=== PATIENT | male | born 1995 | race Caucasian/White ===

== ENCOUNTER 2018-10-01 08:14 | Emergency (ER) | payer OTHER, BC ==
[~2018-10-01 08:14] MED LIST: AMPH20CA15 PO; CITA-137 PO; CITA-141 PO; CITA-145 PO
[2018-10-01] MEDS ORDERED: DIPHTH/TETANUS/ACEL. PERTUSSIS IM ONLY ONE (08:25)
--- NOTE | 2018-10-01 08:26 | ER Report ---
History and Physical Time Seen By MD: 08:25 Hx. 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 He states he was at work today and accidentally cut the thumb of his left hand with a kitchen knife. Last tetanus was less than 5 years ago. Patient is right- hand dominant. Allergies: Coded Allergies: No Known Drug Allergies (Unverified , 10/01/18) Home Meds Discontinued Scripts Amphet Asp/Amphet/D-Amphet (ADDERALL XR 20 MG CAPSULE) 20 Mg Cap.er.24h, 20 MG PO DAILY, #14 CAP Prov:SYEDA LAROSE MD 08/11/17 Citalopram Hydrobromide (CITALOPRAM HBR) 40 Mg Tablet, 40 MG PO QDAY, #90 TAB 3 Refills Prov:SYEDA LAROSE MD 07/10/17 Past Medical/Surgical History Noncontributory towards this chief complaint Smoking Status: Never Smoker Constitutional Vital Sign - Last 24 Hours 10/01/18 08:17 Temp 99.0 Pulse 93 Resp 14 B/P (MAP) 151/93 Pulse Ox 95 O2 Delivery Room Air Physical Exam General appearance: Alert no distress. Respiratory: Chest is non tender, lungs are clear to auscultation. Cardiac: Regular rate and rhythm [ ] Examination of the left thumb reveals partial avulsion to the tip of the left thumb. This will require primary repair. Medical Decision Making ED Course/Re-evaluation ED Course 10/01/2018 8:26:35 am Procedure: Laceration repair. Verbal consent was obtained from the patient. The 3 cm laceration on the left thumb was anesthetized in the usual fashion. The wound was cleansed, draped and explored to its base with a gloved finger. There were no deep structures involved. No tendon injury was identified. The wound was repaired with 5 single interrupted 5-0 nylon sutures then also secured with steristrips. The wound repair was simple. The procedure was performed by myself. Decision to Disposition Date: Oct 01, 2018 Decision to Disposition Time: 09:12 Depart Departure Latest Vital Signs Vital Signs Date Time Temp Pulse Resp B/P (MAP) Pulse Ox O2 Delivery O2 Flow Rate FiO2 10/01/18 08:17 99.0 93 14 151/93 95 Room Air Impression: Primary Impression: Thumb laceration Condition: Improved Disposition: HOME OR SELF-CARE Referrals: SYEDA LAROSE MD (PCP) follow up in 10 days for suture removal New Scripts Cephalexin (KEFLEX) 500 Mg Capsule 500 MG PO Q6H, #20 CAP 0 Refills TAKE ONE CAPSULE BY MOUTH EVERY SIX HOURS Prov: KIRSTIE GORDON MD 10/01/18 Departure Forms: ER Transition Record, Medications Reconciliation, Off Work/School Form, School or Work Release?: Work Number of days to be released: 3 Patient Portal Information Patient Instructions: Finger Laceration (ED) Additional Instructions: Suture removal in 10 days. Leave Steri-Strips in place until they fall off naturally Take your antibiotics as directed until completed. Return to the emergency department if he develops increasing pain, redness streaking up the finger or pus from the wound or fever. Problem Qualifiers Primary Impression: Thumb laceration Encounter type: initial encounter Damage to nail status: with damage Foreign body presence: without foreign body Laterality: left Qualified Codes: S61.112A - Laceration without foreign body of left thumb with damage to nail, initial encounter KIRSTIE GORDON MD Oct 01, 2018 08:26
[2018-10-01] MEDS ORDERED: CEPH-13 PO (09:14)
[2018-10-01] MEDS ORDERED: OXYC-865 PO (09:14)
[2018-10-01 09:32] VITALS: BP 148/72
== END 2018-10-01 09:30 | disposition home or self-care (01) ==
LOC: ER 08:30
DX: S61.112A Laceration without foreign body of left thumb with damage to nail, initial encounter (principal); W26.0XXA Contact with knife, initial encounter
CPT/HCPCS: 90471; 90715; 99283